=== PATIENT | male | born 1965 | race Caucasian/White ===

== ENCOUNTER 2019-10-19 23:19 | Emergency (ER) | payer OTHER ==
[~2019-10-19] VITALS: Ht 177.8 cm; Wt 79.4 kg
[~2019-10-19 23:19] MED LIST: FISH OIL 1,001000 M2; MULTIVITAMINS1 EAC7; NOHOMEMEDICATIONS; RED YEAST RICE600 MG
[2019-10-19] MEDS ORDERED: CRESTOR20 MG PO (23:28)
[2019-10-19] MEDS ORDERED: FLONASE 0.05%50 MCG NARES (23:28)
[2019-10-19 23:39] LABS: ABSOLUTE BASOPHILS 0.1 thou/uL (0.0-0.2); ABSOLUTE EOSINOPHILS 0.6 thou/uL (0.0-0.7); ABSOLUTE MONOCYTES 0.9 thou/uL (0.0-1.2); ABSOLUTE NEUTROPHILS 5.5 thou/uL (1.6-8.1); BASOPHILS 1.4 %; EOSINOPHILS 6.3 %; HEMATOCRIT 43.9 % (42.0-52.0); HEMOGLOBIN 15.6 gm/dL (14.0-18.0); LYMPHOCYTES 22.1 %; MCH 30.7 pg (26.0-34.0); MCHC 35.4 g/dL (28.0-37.0); MCV 86.8 fL (80.0-100.0); MONOCYTES 9.6 %; MPV 7.6 fl. (7.2-11.1); NUCLEATED RBCS 0 /100WBC; PLATELET COUNT* 221 thou/uL (150-400); POLYS 60.6 %; RBC 5.06 mil/uL (4.50-6.00); RDW-CV 12.8 % (10.5-14.5); WBC 9.1 thou/uL (4.0-11.0)
[2019-10-19 23:46] LABS: CALCIUM 9.7 mg/dL (8.5-10.1); CREATININE 1.2 mg/dL (0.6-1.3); POTASSIUM 3.8 mmol/L (3.5-5.1)
[2019-10-19 23:51] LABS: PROTIME 10.3 Seconds (9.20-11.50)
[2019-10-19 23:56] LABS: ALBUMIN 4.5 g/dL (3.4-5.0); MAGNESIUM 2.2 mg/dL (1.8-2.4); TOTAL BILIRUBIN 0.4 mg/dL (<0.1-1.0); TOTAL PROTEIN 8.1 g/dL (6.4-8.2)
[2019-10-20 02:48] VITALS: BP 126/82
--- NOTE | 2019-10-20 10:56 | EKG ---
[place] [address] ELECTROCARDIOGRAM REPORT Name: ANN FERRER Room: [facility]#: [id number] Admission: 10/19/19 Attend Phys: Discharge: 10/20/19 Date of : 63 Date of Service: 10/19/192321 Report #: [id number] THIS REPORT FOR: //name// [facility] ED Test Date: 2019-10-19 Test Time: 23:22:12 Pat Name: ANN FERRER Department: Room: Gender: Telemetry Tech: [place] : 1965 Requested By: Linda Perdomo Order Number: [id number] MD: Jewel Gamez Measurements Intervals Homer Rate: 61 P: 52 MT: 143 QRS: 63 QRSD: 100 T: 59 QT: 381 QTc: 384 Interpretive Statements Sinus rhythm Compared to ECG 09/06/2013 18:01:58 No significant changes Electronically Signed On 10-20-2019 10:54:29 CDT by Jewel Gamez [email or web address] <ELECTRONICALLY SIGNED> By: Jewel Gamez MD, [facility] 10/20/19 1054 2322 21 Jewel Gamez MD, [facility] /EPI
== END 2019-10-20 02:50 | disposition home or self-care (01) ==
LOC: M.ERS 23:19
PROVIDERS: Emergency Medicine
DX: R07.89 Other chest pain (principal); I10 Essential (primary) hypertension; E78.00 Pure hypercholesterolemia, unspecified

== ENCOUNTER → 2020-07-31 | Outpatient (CLI) | payer OTHER ==
[~2020-07-31] MED LIST changes: +CRESTOR20 MG PO; +FLONASE 0.05%50 MCG NARES
--- NOTE | 2020-07-31 17:30 | CARDNUC ---
[place] [address] CARDIAC NUCLEAR IMAGING REPORT Name: ANN FERRER Room: [facility]#: [id number] Admission: 07/31/20 Attend Phys: Sukhwinder Vogt, Discharge: Date of : 63 Date of Service: 07/31/20 1730 Report #: [id number] THIS REPORT FOR: cc: Jens Marina MD, Anthony MD Liston, Michael J. MD [facility] ~ APPROVED REPORT Imaging Protocol: Stress Tc-99m/Rest Tc-99m 1 day Study performed: 07/31/2020 09:45:00 Indication: Chest pain Patient Location: Out-Patient Stress Tech: Janet Cannon Stress Nurse: Nichole Palma RN Ht: 5 ft 10 in Wt: 166 lbs BSA: 1.93 m2 BMI: 23.81 Medical History Medical History: HTN, Hyperlipidemia Medications: asa- 81. rosuvastatin Allergies: No known drug allergies Cardiac Risk Factors: Age, FHX of CAD, HTN, Hyperlipidemia Exercise History: Physically active Resting Data Rest SPECT myocardial perfusion imaging was performed in supine position 30 minutes following the intravenous injection of 10.9 mCi of Tc-99m Sestamibi. Time of rest injection: 10;00 The images were gated to evaluate regional wall motion and calculate left ventricular ejection fraction. Administration Route: IV Administration Site: Right Hand Exercise Stress At peak stress, the patient was injected intravenously with 31.1mCi of Tc-99m Sestamibi. Time of stress injection: 11:40 Administration Route: IV Administration Site: Right Hand Heart Rate at time of stress injection: 171 bpm. Patient continued to exercise for 1 minute([place]). [place] [address] CARDIAC NUCLEAR IMAGING REPORT Name: ANN FERRER Room: [facility]#: [id number] Admission: 07/31/20 Attend Phys: Sukhwinder Vogt, Discharge: Date of : 63 Date of Service: 07/31/20 1730 Report #: [id number] Gated Stress SPECT was performed 30 minutes after stress injection. The images were gated to evaluate regional wall motion and calculate left ventricular ejection fraction. Prone imaging was performed. Stress Test Details Stress Test: Exercise stress testing was performed using a Xavier protocol. HR Max Heart Rate (APMHR): 165 bpm Resting HR: 67 bpm Target HR (85% APMHR): 140 bpm Max HR Achieved: 171 bpm % of APMHR: 103 Recovery HR: 104 bpm BP Resting BP: 117/84 mmHg Max BP: 186/101 mmHg Recovery BP: 133/85 mmHg ECG Resting ECG: Sinus Rhythm Stress ECG: Sinus Tachycardia ST Change: None Arrhythmia: None Recovery ECG: Sinus Rhythm Recovery ST Change: None Recovery Arrhythmia: None Clinical Reason for Termination: Leg pain/Claudication Exercise duration: 8 min sec Exercise capacity: 10.15 METs Functional Aerobic Impairment 104% The patient tolerated standard Xavier protocol exercise without significant cardiac symptoms. The patient exhibited reasonable exercise tolerance. Stress ECG Conclusion Baseline twelve-lead EKG shows sinus rhythm without significant ST segment or T wave abnormality. EKGs obtained during and post exercise show sinus rhythm and sinus tachycardia with no significant ST segment or T wave changes when compared to baseline. There were no stress-induced [place] [address] CARDIAC NUCLEAR IMAGING REPORT Name: ANN FERRER Room: [facility]#: [id number] Admission: 07/31/20 Attend Phys: Sukhwinder Vogt, Discharge: Date of : 63 Date of Service: 07/31/20 1730 Report #: [id number] Study: Good Artifact: No artifact Study Data At rest, the left ventricular ejection fraction was 66%.. Post stress, the left ventricular ejection was 56%.. TID = 0.80. Perfusion Perfusion images obtained in the supine position at rest and post exercise stress show very mild photopenia in the inferior wall that resolves completely with post-rest prone imaging consistent with diaphragmatic attenuation artifact. There were no significant fixed or reversible defects to suggest infarct or ischemia. Wall Motion Normal left ventricular wall motion. Nuclear Conclusion ECG Findings: negative for ischemia Clinical Findings: negative for ischemia Nuclear Findings: negative for ischemia Exercise Capacity: normal Left Ventricular Function: normal Risk Study: low Perfusion images show no defect to suggest infarct or ischemia. Left ventricular systolic function is normal on gated studies. This is a low risk study. <Conclusion> Baseline twelve-lead EKG shows sinus rhythm without significant ST segment or T wave abnormality. EKGs obtained during and post exercise show sinus rhythm and sinus tachycardia with no significant ST segment or T wave changes when compared to baseline. There were no stress-induced arrhythmias. <ELECTRONICALLY SIGNED> By: Sukhwinder Vogt MD, FACC 07/31/20 1730 1730 1730 Sukhwinder Vogt MD, FACC /INF
== END ==
LOC: M.NUC 07-30 08:00 → M.CRD 07-30 09:00 → M.NUC 09:32 → M.CRD 11:00
PROVIDERS: ATTEND Internal Medicine Cardiovascular Disease
DX: R00.0 Tachycardia, unspecified (principal); E78.5 Hyperlipidemia, unspecified; R07.9 Chest pain, unspecified; Z82.49 Family history of ischemic heart disease and other diseases of the circulatory system; I10 Essential (primary) hypertension